=== PATIENT | female | born 1995 | race Caucasian/White ===

== ENCOUNTER 2019-08-01 00:06 | Emergency (ER) | payer BC ==
[~2019-08-01] VITALS: Ht 167.6 cm; Wt 86.0 kg
[~2019-08-01 00:06] MED LIST: AMPH10CA6 PO; BUPR300T49 PO; CETI10TA18 PO; ESCI10TA10 PO; ESZO3TAB28 PO; FLUD0.1T PO; HYDR-3245 PO; IUD; LISD20CA4 PO; MONT10TA6 PO; NADO20TA PO; ONDA4TAB7 PO; PROP10TA16 PO; RANI-467 PO; SUCR1ORA5 PO
[2019-08-01] MEDS ORDERED: ONDANSETRON 2MG/ML, 2ML ONE (00:55)
[2019-08-01] MEDS ORDERED: PROMETHAZINE 25 MG/ML, 1ML ONE (00:55)
[2019-08-01 00:58] LABS: BASOPHILS # (AUTO) 0.03 x10^3/uL (0-0.1); BASOPHILS % (AUTO) 1 % (0-1); EOSINOPHILS # (AUTO) 0.02 x10^3/uL (0-0.4); EOSINOPHILS % (AUTO) 0 % (1-7); LYMPHOCYTES # (AUTO) 2.87 x10^3/uL (1-3.4); LYMPHOCYTES % (AUTO) 46 % (22-44); MD NO; MEAN CORPUSCULAR HEMOGLOBIN 31.6 pg (27.0-34.8); MEAN CORPUSCULAR HGB CONC 33.8 g/dL (32.4-35.8); MEAN CORPUSCULAR VOLUME 93.3 fL (80-100); MEAN PLATELET VOLUME 8.8 fL (7.4-10.4); MONOCYTES # (AUTO) 0.39 x10^3/uL (0.2-0.8); MONOCYTES % (AUTO) 6 % (2-9); NEUTROPHILS % (AUTO) 48 % (42-75); PLATELET COUNT 156 x10^3/uL (130-400); RED BLOOD COUNT 4.66 x10^6/uL (3.82-5.3); RED CELL DISTRIBUTION WIDTH 12.7 % (9.6-15.2)
[2019-08-01] MEDS ORDERED: SODIUM CHLORIDE 0.9% 1,000ML IVBOLUS ONE (01:00)
[2019-08-01] MEDS ORDERED: ONDANSETRON 2MG/ML, 2ML IVPush ONE (01:00)
[2019-08-01] MEDS ORDERED: PROMETHAZINE 25 MG/ML, 1ML IM ONE (01:00)
--- NOTE | 2019-08-01 01:09 | NUR ---
Break RN: patient medicated for nausea/ vomiting. IVF started.
[2019-08-01 01:10] LABS: ALANINE AMINOTRANSFERASE 49 U/L (12-78); ALBUMIN 4.2 g/dL (3.4-5.0); ANION GAP 10 mmol/L (5-15); CALCIUM 8.4 mg/dL (8.5-10.1); CHLORIDE 111 mmol/L (98-107)
[2019-08-01 01:15] LABS: ALKALINE PHOSPHATASE 119 U/L (45-117); BILIRUBIN,TOTAL 0.3 mg/dL (0.2-1.0); CREATININE 0.89 mg/dL (0.55-1.02); TOTAL PROTEIN 7.5 g/dL (6.4-8.2)
--- NOTE | 2019-08-01 02:09 | NUR ---
PT BACK FROM IMAGING. RESTING ON GURNEY WITH EYES CLOSED, RESPIRATIONS EVEN AND NONLABORED. PT HAS NOT HAD VOMITING EPISODE SINCE MEDICATED PER MAR. ALL MONITORING IN PLACE, CALL LIGHT WITHIN REACH, ALL SAFETY MEASURES IN PLACE.
--- NOTE | 2019-08-01 02:51 | NUR ---
PT RESTING ON GURNEY WITH EYES CLOSED, RESPIRATIONS EVEN AND NONLABORED. CALL LIGHT WITHIN REACH. VSS.
[2019-08-01] MEDS ORDERED: SODIUM CHLORIDE 0.9% 1,000 ML IV ONE (02:53)
[2019-08-01 05:02] VITALS: BP 110/71
--- NOTE | 2019-08-01 06:05 | NUR ---
PT AWAKENED, AOX3. PT UPDATED ON CARE SHE RECEIVED. PT PROVIDED WARM DRY CLOTHES HERS WERE SOILED. MD NOTIFIED OF PT STATUS. PT REPORTS NO MEMORY OF EVENTS LEADING PRIOR TO WAKING UP AT THIS TIME.
--- NOTE | 2019-08-01 07:49 | NUR ---
AMBULATED TO BATHROOM WITHOUT ASSISTANCE. FRIEND AT BEDSIDE AND PT GETTING DRESSED
== END 2019-08-01 08:24 | disposition home or self-care (01) ==
LOC: ED 07:00
DX: F10.220 Alcohol dependence with intoxication, uncomplicated (principal); G31.2 Degeneration of nervous system due to alcohol; R41.82 Altered mental status, unspecified; Y90.9 Presence of alcohol in blood, level not specified
CPT/HCPCS: 36415; 70450; 80053; 80307; 84703; 85025; 96372; 96374; 99285; J2405; J2550; J7030; 99284